=== PATIENT | female | born 1995 | race Caucasian/White ===

== ENCOUNTER 2023-12-27 18:04 | Observation (INO) | payer OTHER ==
[2023-12-27] MEDS ORDERED: Lidocaine PF 2% (20 MG/ML) 5 ML VIAL ONE (20:45)
[2023-12-27] MEDS ORDERED: dexAMETHasone 10 MG/ML VIAL ONE (20:45)
[2023-12-27] MEDS ORDERED: Glycopyrrolate 0.2 MG/ML 1 ML VIAL ONE (20:45)
[2023-12-27] MEDS ORDERED: Succinylcholine PF 200 MG/10 ML SYRINGE IV ONE (20:45)
[2023-12-27] MEDS ORDERED: fentaNYL 50 MCG/ML 2 ML VIAL ONE ×2 (20:45→22:01)
[2023-12-27] MEDS ORDERED: Ondansetron 4 MG/2 ML VIAL ONE (20:45)
[2023-12-27] MEDS ORDERED: Rocuronium 50 MG/5 ML Multi-Dose VIAL ONE (20:45)
[2023-12-27] MEDS ORDERED: Ketorolac 30 MG/ML VIAL ONE (22:00)
== END 2023-12-28 10:25 | disposition home or self-care (01) ==
LOC: SURG 18:04
PROVIDERS: ADMIT Surgery
DX: K35.80 Unspecified acute appendicitis (principal)
CPT/HCPCS: J0690; J1100; J1885; J2405; J2704; J3010